=== PATIENT | male | born 1995 | race Caucasian/White ===

== ENCOUNTER 2022-01-07 08:23 | Outpatient (CLI) | payer SELFPAY ==
[2022-01-07 08:45] LABS: Absolute Neutrophil Count 4.6 X10^3/uL (2.0-7.7); Basophil# 0.06 X10^3/uL; Basophil% 0.9 % (0-1); Eosinophil# 0.18 X10^3/uL; Eosinophils% 2.6 % (0-5); Hematocrit 49.5 % (40-54); Hemoglobin 16.9 g/dL (13.0-16.5); Lymphocyte % 21.5 % (19-41); Mean Corp Hgb Conc 34.1 g/dL (32-36); Mean Corpuscular Hgb 30.8 pg (27.0-32.0); Mean Corpuscular Volume 90.2 fL (80-94); Monocyte# 0.64 X10^3/uL; Monocyte% 9.2 % (0-10); NRBC Flagged by Analyzer 0 % (0-5); Neutrophil # 4.58 X10^3/uL (2.7-7.7); Neutrophil % 65.5 % (47-70); Platelet Count 275 K/mm3 (150-450); RBC Distribution Width CV 11.7 % (11.6-14.6); RBC Distribution Width SD 38.9 fl (35.1-43.9); Red Blood Count 5.49 M/mm3 (4.6-6.2)
[2022-01-10 04:07] LABS: Alternaria tenuis <0.10 kU/L (Class 0); Ash, White <0.10 kU/L (Class 0); Aspergillus fumigatus <0.10 kU/L (Class 0); Bermuda Grass <0.10 kU/L (Class 0); Birch <0.10 kU/L (Class 0); Black Walnut <0.10 kU/L (Class 0); Cat Hair / Dander,Stand <0.10 kU/L (Class 0); Cedar, Mountain <0.10 kU/L (Class 0); Cladosporium herbarum <0.10 kU/L (Class 0); Cockroach, American <0.10 kU/L (Class 0); Cottonwood <0.10 kU/L (Class 0); D farinae Mite <0.10 kU/L (Class 0); D pteronyssinus <0.10 kU/L (Class 0); Dog Epithelia <0.10 kU/L (Class 0); Elm, American White <0.10 kU/L (Class 0); Immunoglobulin E 429 IU/mL (6-495); Maple/Box Elder 2.97 kU/L (Class III); Mulberry, White <0.10 kU/L (Class 0); Oak, White <0.10 kU/L (Class 0); Pecan 0.45 kU/L (Class I); Penicillium Notatum <0.10 kU/L (Class 0); Pigweed, Rough <0.10 kU/L (Class 0); Ragweed, Short/Common 0.26 kU/L (Class 0/I); Russian Thistle <0.10 kU/L (Class 0); Sheep Sorrel 0.12 kU/L (Class 0/I); Sycamore, American <0.10 kU/L (Class 0); Timothy Grass <0.10 kU/L (Class 0)
[2022-01-10 15:22] LABS: Mouse Urine <0.10 kU/L (Class 0)
[2022-01-11 00:07] LABS: Aspirgillus flavus Negative (Neg:<1:1); Aspirgillus fumigatus Negative (Neg:<1:1); Aspirgillus niger Negative (Neg:<1:1)
[2022-01-13 12:13] LABS: Immunoglobulin E 473 IU/mL (6-495)
== END 2022-01-07 23:59 | disposition home or self-care (01) ==
PROVIDERS: PCP Physician Assistant; Referring Provider Internal Medicine Critical Care Medicine; Visit Provider Internal Medicine Critical Care Medicine
DX: J45.909 Unspecified asthma, uncomplicated (principal)
CPT/HCPCS: 36415; 82785; 85025; 86003; 86606

== ENCOUNTER 2022-01-13 06:52 | Outpatient (CLI) | payer SELFPAY | END 2022-01-13 23:59 | disposition home or self-care (01) | PROVIDERS: PCP Physician Assistant; Referring Provider Internal Medicine Critical Care Medicine; Visit Provider Internal Medicine Critical Care Medicine | DX: J45.909 Unspecified asthma, uncomplicated (principal) ==

== ENCOUNTER 2022-02-05 07:36 | Outpatient (CLI) | payer SELFPAY ==
[2022-02-05] MEDS: Methacholine Chloride 18 ml neb kit INHALATION (07:51)
--- NOTE | 2022-02-05 15:39 | BRONCHALL_ITS ---
Bronchoprovocation Challenge Bronchoprovocation Challenge Bronchoprovocation Challenge: BRONCHOPROVOCATION STUDY INTERPRETATION Brief HPI: Patient is a 26 year old male, currently under the care of Dr. Joyce, who presents to [facility] for a bronchoprovocation study secondary to diagnosis of asthma. Respiratory therapist reports good effort and reproducible results. Interpretation: Initial spirometry showed no large airways obstructive ventilatory defect. The patient was then given increasingly concentrated doses of methacholine in a stepwise/standardized fashion, using a modified ATS protocol. [The patient had a significant reduction in FEV1 by] 19% and a calculated PD20 of 0.018. Impression: Positive bronchoprovocation study in a range consistent with a diagnosis of asthma
== END 2022-02-05 23:59 | disposition home or self-care (01) ==
LOC: PSN 07:36
PROVIDERS: PCP Physician Assistant; Visit Provider Internal Medicine Critical Care Medicine
DX: J45.909 Unspecified asthma, uncomplicated (principal)
CPT/HCPCS: 94070; 95070

== ENCOUNTER 2024-11-19 15:52 | Emergency (ER) | payer OTHER, SELFPAY ==
[2024-11-19 15:53] VITALS: BP 129/66; PULSE 87; RESP 18; TEMP 36.4; O2SAT 98; BMI 26.4
--- NOTE | 2024-11-19 16:01 | EDS_ITS ---
<Statement entered by Ganga Mazariegos DO - 11/19/24 17:41> Patient was seen and examined with physician middle school assistant principal Trinidad All components of the history and physical confirmed and agreed. History of present illness and physical exam: Patient is a 29-year-old male with no known significant past medical history who presents to the emergency department with a chief complaint of nosebleed. He states that for the past 2 to 3 days he has had approximately 6 nosebleeds and states that he called a ears nose and throat physician that he was being referred to from his primary care physician however he has not gotten in contact with them. He states that it started bleeding again today for about 30 minutes was holding pressure. He states that when he released pressure his nose immediately started pouring out blood again therefore he came here for further evaluation management. patient denies any blood thinning medications. He is otherwise feels his normal self and is asymptomatic. Review of systems: Agree with above Physical exam: Agree with above MDM Patient is a 29-year-old male who presented to the emergency department the chief complaint of epistaxis. On exam patient does not have active bleeding however as noted above the anterior vessel that was bleeding is visible. This looks easily friable. Patient nontoxic in appearance. I offered supportive care with nasal sprays [id number] refraining from blowing his nose for the next several days as well as using a humidifier at home versus using nitrate stick to cauterize the vessel and he would prefer to proceed with this route. Tolerated procedure well without complications as noted above per physician middle school assistant principal Trinidad. He was encouraged to follow-up with ears nose and throat team as well as his primary care physician. He is encouraged to return with her symptoms and concerns. He is agreeable to plan he like to go home all question concerns answered he is discharged home in stable condition. Plan: Final impression: Anterior epistaxis Disposition: Patient will be discharged home in stable condition Supervising attending attestation: Ganga Mazariegos D.O. [facility] History of Present Illness Chief Complaint: Nosebleed Narrative Narrative: 29-year-old male states he has had recurrent nosebleeds from his right nostril over this last week. He was seen in the primary care office yesterday and they could see him blood vessel on his septum that is likely the source of bleeding. They were referring him to ENT. It started bleeding again today for about 30 minutes and he felt like it was not stopping as well with direct pressure so he came in for evaluation. He is not on blood thinners. [facility] Medical History (Reviewed 02/10/22 @ 14:12 by Priscila Chavez FILE MACHINE OPERATOR, FILE MACHINE OPERATOR-C) No pertinent family history Home Medications ?Medication ?Instructions ?Recorded ?Last Taken ?Type albuterol sulfate 90 mcg/actuation 2 puff inhalation Q4H PRN 01/07/22 Unknown Rx aerosol inhaler shortness of breath or wheezing #8.5 grams albuterol sulfate 90 mcg/actuation 2 puff inhalation Q6H PRN 01/07/22 Unknown History aerosol inhaler budesonide-formoterol HFA 160 2 puff inhalation BID #10.2 grams 02/10/22 Unknown Rx mcg-4.5 mcg/actuation aerosol inhaler (Symbicort) cetirizine 10 mg capsule 10 mg PO HS #30 caps 02/10/22 Unknown Rx fluticasone propionate 50 2 spray intranasal DAILY #16 grams 02/10/22 Unknown Rx mcg/actuation nasal spray,suspension Allergy/AdvReac Type Severity Reaction Status Date / Time No Known Allergies Allergy Verified 11/19/24 15:53 Surgical History (Reviewed 02/10/22 @ 14:12 by Priscila Chavez FILE MACHINE OPERATOR, FILE MACHINE OPERATOR-C) No pertinent past surgical history Social History Smoking Status: Current every day smoker tobacco type: cigarettes Tobacco: How many years used: 7 ROS ROS ED ROS Narrative Constitutional: Negative for fever, chills, malaise. Heme: Negative for easy bruising or bleeding. EXAM Physical Exam Narrative Exam Narrative: CONST: Patient sitting in no acute distress. EYES: Normal inspection. ENT: No active epistaxis. Visible right anterior septal blood vessel I suspect is source of the bleeding. Left nostril appears normal. Normal posterior oropharynx. NECK: Normal inspection. RESP: No respiratory distress, CTAB. CVS: Regular rate and rhythm, no murmur, no gallop. SKIN: Color normal, no rash, warm, dry, intact. EXTREMITIES: Normal appearance, no pedal edema. NEURO: Alert and answering questions appropriately. PSYCH: Normal affect. Const Vital Signs: 11/19/24 15:53 Temperature 97.5 F L Temperature Source Temporal Pulse Rate 87 Respiratory Rate 18 Blood Pressure 129/66 H Blood Pressure Mean 87 Pulse Ox 98 Oxygen Delivery Method Room Air MDM MDM MDM Narrative Medical decision making narrative: Patient presents with intermittent recurrent nosebleeds from his right nostril x 1 week. It is not actively bleeding but I can visualize a right anterior septal blood vessel that is the source of the bleeding. I offered conservative management with options such as Afrin/direct pressure at home versus cautery with silver nitrate and he preferred cautery. I discussed risks including pain or discomfort and septal perforation. I performed cautery without complications. Patient was discharged and instructed to still follow-up with ENT. Discharge Plan Triage Chief Complaint: Nosebleed ED Midlevel Provider: Trinidad Diaz ED Provider: Ganga Mazariegos Dx/Rx/DC Orders Clinical Impression: Acute anterior epistaxis Instructions: ED Epistaxis (Adult) Prescriptions: No Action albuterol sulfate 90 mcg/actuation HFA aerosol inhaler 2 puff inhalation Q6H PRN albuterol sulfate 90 mcg/actuation HFA aerosol inhaler 2 puff inhalation Q4H PRN (Reason: shortness of breath or wheezing) Qty: 8.5 6RF Rx Instructions: administer with spacer fluticasone propionate 50 mcg/actuation spray,suspension 2 spray intranasal DAILY Qty: 16 3RF cetirizine 10 mg capsule 10 mg PO HS Qty: 30 3RF budesonide-formoterol [Symbicort] 160-4.5 mcg/actuation HFA aerosol inhaler 2 puff inhalation BID Qty: 10.2 6RF Primary Care Provider: Maritza Cheung Referrals: Joey Varela MD [Med Staff - Courtesy Staff] - Maritza Cheung PA [Primary Care Provider] - Activity Restrictions/Additional Instructions: Follow-up with ENT. If bleeding reoccurs you can spray over the counter afrin in both nostrils and hold you rnose pinched shut with pressure for 20 minutes without letting go. Print Language: Maltese Disposition Disposition: Home, Self Care
[2024-11-19] MEDS: Silver Nitrate (BKC) 1 EACH TOPICAL (16:14)
[2024-11-19 16:24] VITALS: BP 129/66; PULSE 87; RESP 18; TEMP 36.4; O2SAT 98
== END 2024-11-19 16:31 | disposition home or self-care (01) ==
LOC: ED 16:30
PROVIDERS: Emergency Provider Emergency Medicine; PCP Physician Assistant; Visit Provider Emergency Medicine
DX: R04.0 Epistaxis (principal); F17.210 Nicotine dependence, cigarettes, uncomplicated
CPT/HCPCS: 30901; 99282

== ENCOUNTER 2024-11-21 10:22 | Emergency (ER) | payer OTHER, SELFPAY ==
[2024-11-21 10:22] VITALS: BP 125/75; PULSE 85; RESP 16; TEMP 36.8; O2SAT 99; BMI 26.6
--- NOTE | 2024-11-21 10:43 | EDS_ITS ---
HPI History of Present Illness Chief Complaint: Nosebleed Detail of Chief Complaint: Spontaneous epistaxis right side Informant: patient and spouse/S.O. Onset/Context/Timing Onset: Today and Hours Context: Sudden Onset Timing: Intermittent Quality: Bright red blood dripping from right naris Location: Right side Current Severity: Gone Maximum Severity: Moderate Worsened by: Nothing Relieved by: Stopped after 20 minutes Associated Symptoms Associated Symptoms: Nothing Narrative Narrative: Patient is a 29-year-old male on no medication with no significant past medical history. Based on documentation he has a history of tobacco use and asthma. Patient was seen on the . He had 6 nosebleeds 2 to 3 days prior to the visit on the . It was noted that he had a visible vessel that was bleeding right septum. This was cauterized. Patient states he was at work and had bleeding from the right side. Took approximately 20 minutes to the bleeding stopped. He had no blood back of his throat. He had no blood from the left side. He is on no antithrombotic or anticoagulant. Per note authored on November 19 by physician assistant director of security and ER attending he attempted to make appointment with ENT. Patient denies sneezing, blowing his nose or trauma before the bleeding started today or the past week. Patient returns because the bleeding is worse than it was on the . He has had problems with nosebleed for sometimes. According to much more significant past week. [facility] Medical History (Updated 11/21/24 @ 13:[address] Mendoza Varma MD) Groin abscess Frequent nosebleeds No pertinent family history Home Medications ?Medication ?Instructions ?Recorded ?Last Taken ?Type albuterol sulfate 90 mcg/actuation 2 puff inhalation Q6H PRN SOB 01/07/22 Unknown History aerosol inhaler Allergy/AdvReac Type Severity Reaction Status Date / Time No Known Allergies Allergy Verified 11/21/24 10:22 Surgical History No pertinent past surgical history Social History (Updated 11/21/24 @ 10:[address] Mendoza Varma MD) household members: spouse and children Smoking Status: Light Smoker (<10/day) Tobacco: How many years used: 7 ROS ROS ED Constitutional Constitutional ED: Denies chills, fever(s) or subjective ENT ENT ED: Reports other Details: Epistaxis Per HPI narrative ; Denies ear pain, rhinorrhea or sore throat Respiratory/Chest Respiratory/Chest: Denies dyspnea or dyspnea on exertion Gastrointestinal Gastrointestinal: Denies nausea or vomiting Hematologic/Lymphatic Hematologic/Lymphatic: Reports systems reviewed and no addt'l complaints, except as documented EXAM Physical Exam Const Vital Signs: 11/21/24 10:22 Temperature 98.2 F Temperature Source Oral Pulse Rate 85 Respiratory Rate 16 Blood Pressure 125/75 H Blood Pressure Mean 91 Pulse Ox 99 Oxygen Delivery Method Room Air Positive well nourished and well developed General Appearance ED: well developed and NAD; Negative for pallor HEENT Reports moist mucous membranes HEENT Narrative: Posterior pharynx is normal. Uvula is midline. Patient has slight irritation of the right and left nasal mucosa. There is no obvious bleeding source noted. Turbinates are slightly boggy. There was no blood noted in the posterior pharynx. Eyes PERRL and EOMs intact bilaterally General Eye ED: Negative for pale conjunctiva or scleral icterus Resp normal respiratory effort Cardio regular rate and regular rhythm Neuro oriented x3 and CN's II-XII intact bilaterally Sensorium / Orientation: alert Psych mental status grossly normal Skin no rashes or lesions noted, no wounds and skin turgor normal Skin Narrative: There is no bruising noted. General Skin Exam: elasticity normal; Negative for jaundice or pallor MDM MDM MDM Narrative Medical decision making narrative: Patient has noted to have blood at the tip of his nose. There is no obvious bleeding source noted on exam. ENT cart was ordered to perform a more thorough exam and Nichole solution to help reduce the congestion and increased visibility and possible identification of bleeding source. Per ED visit on bleeding source was anterior and reason for cauterization. Procedures Other Procedures Procedure(s): Bleeding source is inferior anterior portion of the septum. Cauterized around the area. Discharge Plan Triage Chief Complaint: Nosebleed ED Provider: Mendoza Varma Dx/Rx/DC Orders Clinical Impression: Acute anterior epistaxis, Epistaxis requiring cauterization Prescriptions: No Action albuterol sulfate 90 mcg/actuation HFA aerosol inhaler 2 puff inhalation Q6H PRN (Reason: SOB) Primary Care Provider: Maritza Cheung Referrals: Brian Terrazas MD [Med Staff - Active Staff] - Keep [facility] appointment Cheung,Maritza PA, PA [Primary Care Provider] - Print Language: Dominican Disposition Disposition: Home, Self Care
[2024-11-21] MEDS: Mixture 30 ML Bottle 20 ML TOPICAL (10:52)
[2024-11-21] MEDS: Silver Nitrate (BKC) 3 EACH TOPICAL (13:11)
[2024-11-21 13:44] VITALS: BP 157/83; PULSE 81; RESP 16; TEMP 36.9; O2SAT 99
== END 2024-11-21 13:46 | disposition home or self-care (01) ==
PROVIDERS: Emergency Provider Emergency Medicine; PCP Physician Assistant; Visit Provider Emergency Medicine
DX: R04.0 Epistaxis (principal); F17.200 Nicotine dependence, unspecified, uncomplicated
CPT/HCPCS: 30901; 99282